=== PATIENT | female | born 1965 | race Caucasian/White ===

== ENCOUNTER → 2024-02-25 10:13 | Outpatient (REF) | payer OTHER, SELFPAY | LOC: HWRAD 10:13 | PROVIDERS: ATTENDING PHYSICIAN Family Medicine | DX: Z00.01 Encounter for general adult medical examination with abnormal findings (principal); I10 Essential (primary) hypertension; E78.2 Mixed hyperlipidemia; I42.9 Cardiomyopathy, unspecified; H91.90 Unspecified hearing loss, unspecified ear; Z12.31 Encounter for screening mammogram for malignant neoplasm of breast; Z78.0 Asymptomatic menopausal state | CPT/HCPCS: 77063; 77067; 77080 ==